=== PATIENT | female | born 1960 | race Caucasian/White ===

== ENCOUNTER → 2022-03-08 | Day surgery (SDC) | payer BC ==
[~2022-03-08] VITALS: Ht 160 cm; Wt 70.9 kg
[~2022-03-08] MED LIST: COMPLETE MULTI1 TAB PO; LEXAPRO20 MG PO; PHARMASSURE ZIN50 MG PO; PULMICORT180 MCG/Ac IH; VITAMIN B COMPL1 SGL PO; VITAMINC1000TA PO; VITAMIND3 5000 PO; ZYRTEC 10MG10 MG PO
[2022-03-08 10:04] VITALS: BP 120/75; PULSE 72; TEMP 97
--- NOTE | 2022-03-08 10:26 | NUR ---
Initial visit; Patient thanked Plant Maintenance Worker for offering prayer and encouragement prior to her "Procedure." Patient very kind and a [place] to talk with.
[2022-03-08 12:15] VITALS: BP 92/51; PULSE 58
--- NOTE | 2022-03-08 12:15 | NUR ---
[id number] PATIENT TO RECOVERY BAY 3 VIA CART. PATIENT UP TO CHAIR WITH ONE PERSON ASSIST. MADE COMFORTABLE IN CHAIR, WARM BLANKETS GIVEN. VITAL SIGNS TAKEN. GIVEN WATER AND PUDDING. DENIES NAUSEA.
[2022-03-08 12:30] VITALS: BP 135/117; PULSE 61
[2022-03-08 12:45] VITALS: BP 146/87; PULSE 63
--- NOTE | 2022-03-08 12:47 | NUR ---
PATIENT DOING WELL, ALERT AND DENIES NAUSEA OR PAIN. IV SITE ON RIGHT HAND DISCONTINUED. READY FOR HOME CHANGES INTO STREET [employer].
--- NOTE | 2022-03-08 12:50 | NUR ---
PATIENT READY TO GO HOME. DISMISSAL INSTRUCTIONS GIVEN. EPLAINED AND WRITTEN COPIES PROVIDED. GIVEN VERBAL UNDERSTANDING. DISMISSED VIA WHEELCHAIR WITH TEST BAKER.
== END ==
LOC: SDCO 09:41
DX: Z12.11 Encounter for screening for malignant neoplasm of colon (principal); E66.9 Obesity, unspecified; Z68.28 Body mass index [BMI] 28.0-28.9, adult; L24.9 Irritant contact dermatitis, unspecified cause; M25.461 Effusion, right knee; M25.561 Pain in right knee; M23.91 Unspecified internal derangement of right knee
CPT/HCPCS: J2704; J7120